=== PATIENT | male | born 1955 | race Caucasian/White ===

== ENCOUNTER → 2018-08-10 17:10 | Outpatient (CLI) | payer OTHER, SELFPAY ==
--- NOTE | 2018-08-10 | DI.MRI.S_ITS ---
PROCEDURE: MR LUMBAR SPINE WO CON INDICATIONS: LOW BACK PAIN TECHNIQUE: Noncontrast sagittal T1 spin echo and T2 fast echo, sagittal STIR, axial T1 and T2 fast spin echo through the lumbar spine. In cases with scoliosis, additional coronal T2 fast spin echo may be performed. COMPARISON: None. FINDINGS: Image quality: Excellent. Alignment and Curvature: There is normal bony alignment. Bone Marrow: Marrow is of normal overall signal. No acute vertebral body compression fractures. Spinal Cord: Conus medullaris terminates at the L1-L2 level. Visualized cord demonstrates normal signal and size. Paraspinous Soft Tissues: No paravertebral masses. T12-L1: Normal appearance. L1-L2: Normal appearance. L2-L3: Normal appearance. L3-L4: The disc height and disk signal are well-preserved. Mild generalized disc bulge is seen. Mild facet joint hypertrophy is seen. Mild bilateral neural foraminal narrowing is seen. Minimal central canal narrowing is seen. L4-L5: The disc height is well-preserved. Loss of disc signal is seen at this level. Mild to moderate disc bulge is seen. There is an annular fissure seen posteriorly, as on series 4 image 10 and on series 5 image 23. Mild to moderate facet hypertrophy is seen. There is moderate to severe bilateral neural foraminal narrowing seen, right worse than left. There is a degree of compression seen upon the exiting nerve roots. Mild central canal narrowing is seen. L5-S1: The disc height is well-preserved. Loss of disc signal is seen at this level. Mild generalized disc bulge is seen. Moderate facet joint hypertrophy is seen. Moderate bilateral neural foraminal narrowing is seen, left worse than right. A mild degree of compression can be seen on the exiting left L5 nerve root. The central canal is widely patent. IMPRESSION: Lower lumbar spine degenerative changes are seen, which are most prominent at the L4-L5 level. Dictated by: Azar Young M.D. on 08/13/2018 at 7:27 Approved by: Azar Young M.D. on 08/13/2018 at 7:32
== END ==
PROVIDERS: Visit Provider Physical Medicine & Rehabilitation
DX: M54.5 Low back pain (principal); M47.896 Other spondylosis, lumbar region
CPT/HCPCS: 72148

== ENCOUNTER → 2018-12-25 14:05 | Outpatient (CLI) | payer OTHER, SELFPAY ==
--- NOTE | 2018-12-25 | DI.MRI.S_ITS ---
PROCEDURE: MR CERVICAL SPINE WO CON INDICATIONS: Radiculopathy, cervical region TECHNIQUE: Noncontrast sagittal T1 spin echo and T2 fast spin echo, sagittal STIR, foraminal oblique sagittal T2 fast spin echo, and axial gradient echo or T2 fast spin echo through the cervical spine. COMPARISON: None. FINDINGS: Image quality: Excellent. Alignment and Curvature: There is loss of normal cervical lordosis. Bone Marrow: Marrow demonstrates normal overall signal. Spinal Cord: Visualized spinal cord has normal size and signal. No cerebellar tonsillar herniation. Paraspinous Soft Tissues: No paravertebral masses. Prevertebral soft tissues are normal in thickness. C2-C3: Mild disc desiccation. No significant canal, nor foraminal stenosis. C3-C4: Mild disc desiccation. Mild diffuse disc bulge. Mild bilateral facet hypertrophy. Mild canal stenosis. Mild right foraminal stenosis. No left foraminal stenosis. C4-C5: Mild disc height loss and desiccation. Mild diffuse disc bulge. Mild bilateral facet hypertrophy. Mild canal stenosis. No foraminal stenosis. C5-C6: Mild disc height loss and desiccation. Mild diffuse disc bulge. Mild canal stenosis. No foraminal stenosis. C6-C7: Mild disc height loss and desiccation. Mild diffuse disc bulge with small superimposed broad-based left posterolateral protrusion. Mild canal stenosis. No foraminal stenosis. C7-T1: Mild disc desiccation. No significant canal, nor foraminal stenosis. IMPRESSION: 1. Multilevel degenerative disc and facet disease, causing mild canal and foraminal stenoses as described above. No neural impingement. Dictated by: John Ashford M.D. on 12/25/2018 at 14:54 Approved by: John Ashford M.D. on 12/25/2018 at 14:56
== END ==
PROVIDERS: PCP Physical Medicine & Rehabilitation; Visit Provider Physical Medicine & Rehabilitation
DX: M54.12 Radiculopathy, cervical region (principal)
CPT/HCPCS: 72141

== ENCOUNTER → 2021-03-23 14:37 | Outpatient (CLI) | payer OTHER, SELFPAY ==
--- NOTE | 2021-03-23 14:42 | DI.ECHO.S_ITS ---
[facility] +---------+ : : [address] [place] : : : : [id number] : : : : Phone: [phone]+ Echocardiogram Report + + :Name: SALOME JIMENEZ Study Date: 03/23/2021 Height: 71 in : :[facility] ReadingLocation: Weight: 284 lb : : Gender: Male BSA: 2.4 m2 : :: 1955 Age: 65 yrs BP: 106/70 mmHg: :Reason For Study: PALPITATIONS : :Ordering Physician: STEFANIE, : :OSACAR Performed By: Cyndee Chapman : :Referring: PASCUAL SONG : + + Interpretation Summary The left ventricle is normal in size. Left ventricular systolic function appears normal without focal wall motion abnormalities. The ejection fraction is estimated to be 60-65%. Diastolic parameters suggest a relaxation abnormality of the left ventricle, consistent with probable normal filling pressures. The right ventricle is borderline dilated. The right ventricular systolic function is normal. The left atrium is mildly dilated. Right atrial size is normal. There is no significant valvular heart disease. The aortic root is normal size. Procedure: A two-dimensional transthoracic echocardiogram with color flow and Doppler was performed. The study quality was technically adequate. There is no prior echocardiogram noted for this patient. The patient was in sinus bradycardia with heart rates between 55-61 bpm during the exam. Left Ventricle: The left ventricle is normal in size. Left ventricular wall thickness is mildly increased. Left ventricular systolic function appears normal without focal wall motion abnormalities. The ejection fraction is estimated to be 60-65%. Diastolic parameters suggest a relaxation abnormality of the left ventricle, consistent with probable normal filling pressures. Right Ventricle: The right ventricle is borderline dilated. The right ventricular systolic function is normal. Atria: The left atrium is mildly dilated. Right atrial size is normal. There is no Doppler evidence for an interatrial shunt. Mitral Valve: The mitral valve is normal in structure and function. There is trace mitral regurgitation. Aortic Valve: The aortic valve is trileaflet. The aortic valve is mildly calcified. There is no aortic valve stenosis. No aortic regurgitation is present. Tricuspid Valve: The tricuspid valve is normal in structure and function. There is a trace or physiologic amount of tricuspid regurgitation. Pulmonic Valve: The pulmonic valve leaflets are thin and pliable; valve motion is normal. There is trace pulmonic regurgitation. There is no significant valvular heart disease. Great Vessels: The aortic root is normal size. The dimensions of the ascending aorta are normal. Pericardium/ Pleura There is no pericardial effusion. There is no pleural effusion. MMode/2D Measurements & Calculations LVIDd: 4.5 cm LVOT diam: 2.2 cm LVIDs: 2.9 cm Ao root diam: 3.3 cm FS: 34.3 % asc Aorta Diam: 3.3 cm IVSd: 1.0 cm Ao Arch Diam (Prox Trans): 2.5 cm LVPWd: 1.2 cm LV sanchez. diameter/BSA (cm/m^2): 1.8 LV sys. diameter/BSA (cm/m^2): 1.2 LA A2 area: 24.6 cm2 RA long axis: 5.0 cm LA A4 area: 23.7 cm2 RA area: 13.8 cm2 LA length (vol): 6.0 cm RA vol: 32.4 ml LA vol: 83.0 ml RA : 13.3 ml/m2 LA vol index: 33.9 ml/m2 RVD1 (basal): 4.5 cm TAPSE: 2.7 cm Doppler Measurements & Calculations Ao V2 max: 142.3 cm/sec LVOT Max Romaine: 118.7 cm/sec Ao V2 mean: 105.4 cm/sec LV V1 max P.6 mmHg Ao max P.1 mmHg LV V1 VTI: 22.8 cm Ao mean P.8 mmHg DHRUV(I,D): 3.3 cm2 Ao V2 VTI: 25.3 cm DHRUV(V,D): 3.0 cm2 sev ratio: 0.90 DHRUV indexed to BSA (cm^2/m^2): 1.3 MV E max romaine: 57.3 cm/sec PA V2 max: 100.9 cm/sec MV A max romaine: 65.8 cm/sec PA V2 mean: 68.3 cm/sec MV E/A: 0.87 PA mean P.1 mmHg Med Peak E' Romaine: 7.1 cm/sec PA pr(Accel): 17.3 mmHg E/E' med: 8.1 Lat Peak E' Romaine: 8.6 cm/sec E/E' lat: 6.7 E/e' average: 7.4 MV dec time: 0.23 sec SV(LVOT): 83.2 ml Reading Physician:05:30 PM
== END ==
PROVIDERS: PCP Student in an Organized Health Care Education/Training Program; Referring Provider Internal Medicine Cardiovascular Disease; Visit Provider Internal Medicine Cardiovascular Disease
DX: R00.2 Palpitations (principal); R42 Dizziness and giddiness; I49.3 Ventricular premature depolarization
CPT/HCPCS: 93306